=== PATIENT | male | born 2000 | race Caucasian/White ===

== ENCOUNTER 2018-04-21 19:07 | Emergency (ER) | payer SELFPAY ==
--- NOTE | 2018-04-21 19:19 | EDM.PDOC ---
ED HPI GENERAL MEDICAL PROBLEM - General Chief Complaint: Trauma Stated Complaint: PT HAS NECK INJURY Time Seen by Provider: 04/21/18 19:19 Source of Information: Reports: Patient - History of Present Illness INITIAL COMMENTS - FREE TEXT/NARRATIVE: HISTORY AND PHYSICAL: History of present illness: [Patient presents after a hockey tournament/gain/match He was hit in the chest wall with a pock, initially EMS had reported O2 sats in the 80s and stridorous breathing, he has a contusion on the anterior chest wall just left of the sternal notch consistent with being struck [place] the [place] On my exam he is not hypoxic nor does he have stridor however there is a slight wheeze and he states there is pain with deep inspiration and sensation that he cannot get a full breath Does not exhibit any labored breathing no fever nausea vomiting chills sweats no chest pain headache dizziness or palpitation no bowel or urine symptoms ] Review of systems: As per history of present illness and below otherwise all systems reviewed and negative. Past medical history: As per history of present illness and as reviewed below otherwise noncontributory. Surgical history: As per history of present illness and as reviewed below otherwise noncontributory. Social history: No reported history of drug or alcohol abuse. Family history: As per history of present illness and as reviewed below otherwise noncontributory. Physical exam: HEENT: Atraumatic, normocephalic, pupils reactive, negative for conjunctival pallor or scleral icterus, mucous membranes moist, throat clear, neck supple, nontender, trachea midline. Lungs: Clear to auscultation, breath sounds equal bilaterally, chest nontender. Os DuoNeb and Solu-Medrol Heart: S1S2, regular, negative for clicks, rubs, or JVD. Abdomen: Soft, nondistended, nontender. Negative for masses or hepatosplenomegaly. Negative for costovertebral tenderness. Pelvis: Stable nontender. Genitourinary: Deferred. Rectal: Deferred. Extremities: Atraumatic, negative for cords or calf pain. Neurovascular unremarkable. Neuro: Awake, alert, oriented. Cranial nerves II through XII unremarkable. Cerebellum unremarkable. Motor and sensory unremarkable throughout. Exam nonfocal. Diagnostics: []Chest x-ray one view CT chest and neck soft tissue with contrast Therapeutics: [] DuoNeb Solu-Medrol 125 mg IV Rest ice ibuprofen HFA Medrol Dosepak Impression: [ chest wall contusion ] Definitive disposition and diagnosis as appropriate pending reevaluation and review of above. chets area Pain Score (Numeric/FACES): 5 - Related Data Allergies Allergy/AdvReac Type Severity Reaction Status Date / Time No Known Allergies Allergy Verified 04/21/18 19:24 Home Meds: Home Meds . [No Known Home Meds] 04/21/18 [History] Review of Systems - Review of Systems Review Of Systems: See Below ED EXAM, GENERAL - Physical Exam Exam: See Below Course - Vital Signs Last Recorded V/S: Last Vital Signs Temp 98 F 04/21/18 19:10 Pulse 88 04/21/18 19:10 Resp 18 04/21/18 19:10 BP 127/83 04/21/18 19:10 Pulse Ox 99 04/21/18 19:10 - Orders/Labs/Meds Orders: Active Orders 24 hr Category Date Time Status RT Aerosol Therapy [RC] ASDIRECTED Care 04/21/18 19:32 Active Labs: Laboratory Tests 04/21/18 04/21/18 Range/Units 19:08 19:08 WBC 7.27 (4.0-11.0) K/uL RBC 4.87 (4.50-5.90) M/uL Hgb 14.7 (13.0-17.0) g/dL Hct 42.7 (38.0-50.0) % MCV 87.7 (80.0-98.0) fL MCH 30.2 (27.0-32.0) pg MCHC 34.4 (31.0-37.0) g/dL RDW Std Deviation 42.7 (28.0-62.0) fl RDW Coeff of Lucretia 13 (11.0-15.0) % Plt Count 274 (150-400) K/uL MPV 10.20 (7.40-12.00) fL Neut % (Auto) 56.2 (48.0-80.0) % Lymph % (Auto) 32.6 (16.0-40.0) % Banner % (Auto) 9.1 (0.0-15.0) % Eos % (Auto) 1.5 (0.0-7.0) % Baso % (Auto) 0.6 (0.0-1.5) % Neut # (Auto) 4.1 (1.4-5.7) K/uL Lymph # (Auto) 2.4 (0.6-2.4) K/uL Banner # (Auto) 0.7 (0.0-0.8) K/uL Eos # (Auto) 0.1 (0.0-0.7) K/uL Baso # (Auto) 0.0 (0.0-0.1) K/uL Nucleated RBC % 0.0 /100WBC Nucleated RBCs # 0 K/uL Sodium 142 (136-148) mmol/L Potassium 4.0 (3.5-5.1) mmol/L Chloride 106 (98-107) mmol/L Carbon Dioxide 27.9 (21.0-32.0) mmol/L BUN 25 H (7.0-18.0) mg/dL Creatinine 1.3 (0.8-1.3) mg/dL Est Cr Clr Drug Dosing TNP Estimated GFR (MDRD) > 60.0 ml/min Glucose 102 (74-106) mg/dL Calcium 10.1 (8.5-10.1) mg/dL Total Bilirubin 0.4 (0.2-1.0) mg/dL AST 16 (15-37) IU/L ALT 26 (14-63) IU/L Alkaline Phosphatase 111 (46-116) U/L Total Protein 7.8 (6.4-8.2) g/dL Albumin 4.1 (3.4-5.0) g/dL Globulin 3.7 (2.6-4.0) g/dL Albumin/Globulin Ratio 1.1 (0.9-1.6) Meds: Medications Discontinued Medications Generic Name Dose Route Start Last Admin Trade Name Freq PRN Reason Stop Dose Admin Albuterol/Ipratropium 3 ml 04/21/18 19:32 04/21/18 19:39 Duoneb 3.0-0.5 Mg/3 Ml NEB 04/21/18 19:33 3 ml ONETIME ONE Administration Iopamidol 100 ml 04/21/18 20:32 04/21/18 20:33 Isovue-370 (76%) IVPUSH 04/21/18 20:33 100 ml ONETIME ONE Administration Methylprednisolone Sodium Succinate 125 mg 04/21/18 19:33 04/21/18 19:40 Solu-Medrol IVPUSH 04/21/18 19:34 125 mg ONETIME ONE Administration Departure - Departure Time of Disposition: 21:33 Disposition: Home, Self-Care 01 Condition: Good Clinical Impression: Chest wall contusion - Discharge Information Forms: ED Department Discharge Additional Instructions: The following information is given to patients seen in the emergency department who are being discharged to home. This information is to outline your options for follow-up care. We provide all patients seen in our emergency department with a follow-up referral. The need for follow-up, as well as the timing and circumstances, are variable depending upon the specifics of your emergency department visit. If you don't have a primary care physician on staff, we will provide you with a referral. We always advise you to contact your personal physician following an emergency department visit to inform them of the circumstance of the visit and for follow-up with them and/or the need for any referrals to a consulting specialist. The emergency department will also refer you to a specialist when appropriate. This referral assures that you have the opportunity for follow-up care with a specialist. All of these measure are taken in an effort to provide you with optimal care, which includes your follow-up. Under all circumstances we always encourage you to contact your private physician who remains a resource for coordinating your care. When calling for follow-up care, please make the office aware that this follow-up is from your recent emergency room visit. If for any reason you are refused follow-up, please contact the [facility] emergency department at and asked to speak to the emergency department charge nurse. - My Orders Last 24 Hours: My Active Orders 04/21/18 19:32 RT Aerosol Therapy [RC] ASDIRECTED - Assessment/Plan Last 24 Hours: My Active Orders 04/21/18 19:32 RT Aerosol Therapy [RC] ASDIRECTED
[2018-04-21] MEDS ORDERED: Albuterol/Ipratropium 3.0-0.5 MG/3 ML Neb Soln NEB ONE (19:32)
[2018-04-21] MEDS ORDERED: methylPREDNISolone Sodium Succinate 125 MG/2 ML SDV IVPUSH ONE (19:33)
--- NOTE | 2018-04-21 19:49 | CR ---
INDICATION: Trauma to upper anterior chest, hit with puck. TECHNIQUE: AP portable upright radiograph of the chest. COMPARISON: None FINDINGS: Cardiomediastinal silhouette: Within normal limits. Lungs and pleural spaces: Lungs are clear. No focal consolidation. No pulmonary edema. No pleural effusion or pneumothorax. Bones and soft tissues: No visualized fractures, though evaluation is somewhat limited on the single view. IMPRESSION: No visualized fractures on this single view of the chest. Dictated by Lizzie Sheikh MD @ 04/21/2018 7:47:00 PM Dictated by: Lizzie Sheikh MD @ 04/21/2018 19:47:07 (Electronically Signed)
[2018-04-21 19:59] LABS: CHLORIDE,CL 106 mmol/L (98-107); SODIUM,NA 142 mmol/L (136-148)
[2018-04-21] MEDS ORDERED: Iopamidol 755 Mg/ML 100 ML Bottle IVPUSH ONE (20:32)
--- NOTE | 2018-04-21 21:14 | CT ---
INDICATION: Chest pain after struck upper left chest by hockey puck TECHNIQUE: CT chest with i.v. contrast during the venous phase. Coronal and sagittal reformats were obtained. CONTRAST: 100 mL Isovue 370 COMPARISON: None FINDINGS: Moderate image quality degradation noted due to beam hardening artifacts from scanning with the arms by the patient`s sides. Cardiovascular: The heart has an unremarkable appearance and size. The pulmonary arteries are unremarkable in appearance. No sign of aneurysm or dissection in the thoracic aorta. Mediastinum: Soft tissue is noted in the anterior mediastinum which is likely due to residual thymic tissue in this young patient. Lung: No pulmonary contusion, laceration or pneumothorax seen. Pleura and pericardium: No sign of pleural effusion seen. No significant pericardial effusion is present. Chest wall and axilla: No mass or adenopathy seen. Bone: Unremarkable for age. Upper abdomen: Unremarkable. IMPRESSION: 1. Unremarkable CT appearance of the chest. Dictated by Hector Good MD @ 04/21/2018 9:13:47 PM Please note that all CT scans at this facility use dose modulation, iterative reconstruction, and/or weight-based dosing when appropriate to reduce radiation dose to as low as reasonably achievable. Dictated by: Hector Good MD @ 04/21/2018 21:13:59 (Electronically Signed)
--- NOTE | 2018-04-21 21:21 | CT ---
INDICATION: Neck pain following being struck by hockey puck TECHNIQUE: CT neck soft tissue with i.v. contrast. Coronal and sagittal reformats were obtained. CONTRAST: 100 mL Isovue 370 COMPARISON: None FINDINGS: Skull base: Unremarkable. Portions of the oral cavity and mandible are obscured by streak artifacts from the patient`s dental amalgams. Pharynx: No retropharyngeal fluid collections are identified. No CT evidence of tonsillar or peritonsillar abscess seen. The epiglottis is normal in appearance. Larynx and airway: Unremarkable. Salivary: Unremarkable. Thyroid: Unremarkable. Vascular: Unremarkable for age. Lymph: Unremarkable. Bone: No acute fractures or aggressive bone lesions are identified. Disc: The disc spaces are unremarkable in appearance. The facet joints are unremarkable. Soft tissue: The prevertebral soft tissues are unremarkable in appearance. Lung: The visualized lung apices and mediastinum are unremarkable. IMPRESSION: 1. The neck is unremarkable in appearance. Dictated by Hector Good MD @ 04/21/2018 9:17:19 PM Please note that all CT scans at this facility use dose modulation, iterative reconstruction, and/or weight-based dosing when appropriate to reduce radiation dose to as low as reasonably achievable. Dictated by: Hector Good MD @ 04/21/2018 21:19:05 (Electronically Signed)
== END 2018-04-21 21:42 | disposition home or self-care (01) ==
LOC: MW.ED 19:07
DX: S20.212A Contusion of left front wall of thorax, initial encounter (principal); V00-Y99 External causes of morbidity
CPT/HCPCS: 36415; 70491; 71045; 71260; 80053; 85025; 93005; 94640; 96374; 99285; J2930; Q9967; 99283; J7620-GY